=== PATIENT | male | born 1945 | race Hispanic/Latino ===

== ENCOUNTER 2016-11-12 10:06 | Outpatient (CLI) | payer MEDICARE ==
[2016-11-12 11:13] LABS: Blood Urea Nitrogen 10 mg/dL (9-20)
[2016-11-12] MEDS ORDERED: NACL ONE (11:13)
--- NOTE | 2016-11-12 15:15 | Cat Scan Report ---
CTA abdomen, pelvis, lower extremities: Transverse images were obtained from the chest to the ischium with coronal and sagittal 2-D reformatted images as well as 3-D images. Comparison made to prior exam in September 2015 and July 2012. Images of the right lung base demonstrates an area of parenchymal opacity with irregular margination contiguous with the diaphragm anteriorly. This looks essentially the same although possibly larger than seen on prior study of September but not present in 2012. Interstitial markings are generally thickened throughout both lung bases. The gallbladder is apparently been removed. The abdominal structures were not otherwise remarkable. Mild perinephric stranding is noted bilaterally. There is a small scar in the inferior right kidney. Numerous diverticula are present throughout the descending and distal colon. Fat containing umbilical hernia. No changes noted from prior study. The suprarenal abdominal aorta is unremarkable in size. 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 Single renal artery bilaterally. There may be significant stenosis at the origin of the left. The BARTOLO is present. 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 There is a patent lumen with surrounding thrombus. The maximum diameter measures 4.6 cm. Compared to her prior study at the same location it measured 4.3 mm. The left BONY measures 3 cm and unchanged. The right BONY is stable at 15 mm. The external iliac and common femoral arteries are both patent and are patent bifurcations bilaterally. Left lower extremity: There is heavy calcification throughout the superficial femoral. The popliteal and common peroneal arteries are patent. There is plaque with some moderate stenosis in the popliteal artery. The trifurcation is patent. The peroneal artery occludes distal to the origin. Heavy calcification with significant stenoses are present throughout both anterior and posterior tibial arteries with the posterior artery occluding proximal to the ankle. Right lower extremity: The SFA is patent as is the popliteal and peroneal arteries. There is a patent trifurcation. All 3 vessels are patent but there is heavy calcification with high grade stenoses involving both the anterior and posterior tibial arteries. Impressions: 1. Probably stable infrarenal abdominal aortic aneurysm and stable aneurysm of the left BONY. 2. Multiple high grade stenoses below the knee bilaterally. 3. Probable right basilar pulmonary scar with interstitial lung disease at both lung bases.
== END 2016-11-12 10:07 | disposition home or self-care (01) ==
LOC: CT 10:06
PROVIDERS: ATTEND Surgery Vascular Surgery
DX: I71.4 Abdominal aortic aneurysm, without rupture (principal); I74.3 Embolism and thrombosis of arteries of the lower extremities; K57.30 Diverticulosis of large intestine without perforation or abscess without bleeding; K42.9 Umbilical hernia without obstruction or gangrene; I70.8 Atherosclerosis of other arteries; Z90.49 Acquired absence of other specified parts of digestive tract
CPT/HCPCS: 36415; 75635; 82565; 84520; Q9967